=== PATIENT | female | born 2005 | race Caucasian/White ===

== ENCOUNTER 2023-07-25 22:32 | Emergency (ER) | payer MEDICAID, OTHER ==
[~2023-07-25] VITALS: Ht 162.6 cm; Wt 64.0 kg
[2023-07-25 22:34] VITALS: O2SAT 100
[2023-07-25 22:44] VITALS: BP 110/72; PULSE 120; RESP 20; TEMP 98.1; O2SAT 99
[2023-07-25] MEDS: BACITRACIN ZINC OINT UDPKT TOP ONE (23:15)
[2023-07-25] MEDS: LIDOCAINE HCL/PF 1% 10 MG/ML 5ML VIAL INFIL ONE (23:15)
== END 2023-07-26 00:11 | disposition home or self-care (01) ==
LOC: ER 22:32
DX: S71.111A Laceration without foreign body, right thigh, initial encounter (principal); W18.39XA Other fall on same level, initial encounter; Y93.89 Activity, other specified; Y92.89 Other specified places as the place of occurrence of the external cause; Y99.8 Other external cause status
CPT/HCPCS: 12002; 99282; Z7610

== ENCOUNTER 2023-08-05 15:37 | Emergency (ER) | payer MEDICAID, OTHER ==
[~2023-08-05] VITALS: Ht 152.4 cm; Wt 52.2 kg
[2023-08-05 15:57] VITALS: BP 102/55; PULSE 97; RESP 16; TEMP 98.3; O2SAT 100
[2023-08-05] MEDS ORDERED: MUPI15CR11 TP (16:05)
== END 2023-08-05 16:28 | disposition home or self-care (01) ==
LOC: ER 15:37
DX: S81.811D Laceration without foreign body, right lower leg, subsequent encounter (principal); X58.XXXD Exposure to other specified factors, subsequent encounter
CPT/HCPCS: 99282; Z7610